=== PATIENT | female | born 1985 | race Caucasian/White ===

== ENCOUNTER 2017-10-15 07:00 | Inpatient (IN) | payer OTHER ==
[~2017-10-15] VITALS: Ht 162.6 cm; Wt 120.2 kg
[~2017-10-15 07:00] MED LIST: AMOXICILLIN500 M3 PO; IBUPROFEN800 M1 PO; KEPPRA 500MG T500 MG
[2017-10-15 10:39] LABS: ABSOLUTE BASOPHIL COUNT 0 /CUMM (0.0-0.2); ABSOLUTE EOSINOPHIL COUNT 0 /CUMM (0.0-0.7); ABSOLUTE LYMPH COUNT 1.3 /CUMM (1.2-3.4); ABSOLUTE MONOCYTE COUNT 0.7 /CUMM (0.10-0.60); BASOPHIL % 0.3 % (0.0-2.0); EOSINOPHIL % 0.5 % (0-5); GRANULOCYTE % 79.5 % (42.2-75.2); HEMATOCRIT 36.8 % (37-47); MEAN CORPUSCULAR HGB 26.6 PG (27.0-31.0); MEAN CORPUSCULAR HGB CONC 32.8 G/DL (33.0-37.0); PLATELET COUNT 208 /CUMM (130-400); RBC DISTRIBUTION WIDTH 15.7 % (11.5-14.5); RED BLOOD CELL CT 4.54 /CUMM (4.20-5.40); WHITE BLOOD CELL COUNT 10.1 /CUMM (4.8-10.8)
[2017-10-15 17:09] LABS: ABSOLUTE BASOPHIL COUNT 0 /CUMM (0.0-0.2); ABSOLUTE EOSINOPHIL COUNT 0 /CUMM (0.0-0.7); ABSOLUTE GRANULOCYTE CT 11.7 /CUMM (1.4-6.5); ABSOLUTE LYMPH COUNT 1.2 /CUMM (1.2-3.4); ABSOLUTE MONOCYTE COUNT 1.1 /CUMM (0.10-0.60); BASOPHIL % 0.1 % (0.0-2.0); EOSINOPHIL % 0.1 % (0-5); GRANULOCYTE % 83.4 % (42.2-75.2); HEMATOCRIT 34.4 % (37-47); MEAN CORPUSCULAR HGB 26.6 PG (27.0-31.0); MEAN CORPUSCULAR HGB CONC 32.5 G/DL (33.0-37.0); PLATELET COUNT 193 /CUMM (130-400); RBC DISTRIBUTION WIDTH 15.7 % (11.5-14.5); RED BLOOD CELL CT 4.19 /CUMM (4.20-5.40)
[2017-10-16 06:19] LABS: ABSOLUTE BASOPHIL COUNT 0 /CUMM (0.0-0.2); ABSOLUTE EOSINOPHIL COUNT 0.1 /CUMM (0.0-0.7); BASOPHIL % 0.2 % (0.0-2.0); RED BLOOD CELL CT 3.59 /CUMM (4.20-5.40)
[2017-10-16 06:27] LABS: ABSOLUTE GRANULOCYTE CT 7.6 /CUMM (1.4-6.5); ABSOLUTE LYMPH COUNT 1.4 /CUMM (1.2-3.4); ABSOLUTE MONOCYTE COUNT 0.6 /CUMM (0.10-0.60); EOSINOPHIL % 1.3 % (0-5); GRANULOCYTE % 77.7 % (42.2-75.2); MEAN CORPUSCULAR HGB 26.6 PG (27.0-31.0); MEAN CORPUSCULAR HGB CONC 32.4 G/DL (33.0-37.0); MEAN PLATELET VOLUME 8.5 FL (7.4-10.4); PLATELET COUNT 161 /CUMM (130-400); RBC DISTRIBUTION WIDTH 15.5 % (11.5-14.5); WHITE BLOOD CELL COUNT 9.8 /CUMM (4.8-10.8)
[2017-10-16 06:30] LABS: HEMATOCRIT 29.4 % (37-47)
--- NOTE | 2017-10-17 10:32 | History & Physical Pre-Op ---
General Information and HPI MD Statement: I have seen and personally examined ALISIA RIVERA and documented this H&P. The patient is a 31 year old F who presented with a patient stated chief complaint of []. History of Present Illness: Patient is a 31-year-old 3 para 1 LMP 01/03/2017 EDC 10/21/2017 at 39 weeks with breech presentation presents for primary section. She underwent unsuccessful trial of external cephalic version last week. care is complete and unremarkable. Allergies/Medications Allergies: Coded Allergies: NO KNOWN ALLERGIES (NONE 10/15/17) Home Med list Ibuprofen 800 MG TABLET 800 MG PO Q6P PRN UTERINE CRAMPING Levetiracetam (Keppra 500MG Tab) 500 MG TABLET SEIZURES (Reported) Past History Medical History Neurological: seizure EENT: NONE Cardiovascular: NONE Respiratory: NONE FRUIT RANCHER/Reproductive: miscarriage Surgical History Pertinent Surgical History: non-contributory Past Family/Social History Psychosocial History Smoking Status: Never Smoked Review of Systems Review of Systems Constitutional: Reports: no symptoms. EENTM: Reports: no symptoms. Cardiovascular: Reports: no symptoms. Respiratory: Reports: no symptoms. GI: Reports: no symptoms. Genitourinary: Reports: no symptoms. Musculoskeletal: Reports: no symptoms. Skin: Reports: no symptoms. Neurological/Psychological: Reports: no symptoms. Hematologic/Endocrine: Reports: no symptoms. Immunologic/Allergic: Reports: no symptoms. All Other Systems: Reviewed and Negative Exam & Diagnostic Data Last 24 Hrs of Vital Signs/I&O Vital signs stable Physical Exam: HEENT: Normocephalic atraumatic Chest: Clear to auscultation Cardiovascular: Normal S1-S2 Abdomen: Gravid breech presentation estimated weight 8 pounds Pelvic: Deferred to the OR Extremities: No clubbing cyanosis or edema Neurologic: Nonfocal Assessment/Plan Assessment/Plan: 39 week breech presentation Plan: Primary section As Ranked By This Provider Problem List: 1. Breech presentation of fetus
--- NOTE | 2017-10-17 10:36 | Operative Report ---
Operative/Inv Procedure Report Surgery Date: 10/15/17 Name of Procedure: Primary section Pre-Operative Diagnosis: Breech presentation Post-Operative Diagnosis: Same Estimated Blood Loss: 800 Surgeon/Corporation Lawyer: Zoe Dugan MD,Seth Mcgee M.D. Anesthesia: spinal Operative/Procedure Note Note: The patient was brought to the operating room placed on the OR table in the sitting position where she underwent spinal anesthetic without complication. She was repositioned into dorsal supine with a block under her right. Venodyne boots were placed and activated and a Jiménez catheter was inserted into the bladder. The patient's abdomen was prepped and draped in the usual sterile fashion and tested. A Pfannenstiel skin incision was made with the scalpel and taken down to the layer of the fascia. The fascia was nicked in the midline and extended bilaterally. The underlying rectus muscles were off the fascia and the peritoneal cavity was entered bluntly. A [place] bladder blade was inserted to protect the bladder from the operative field. A low transverse uterine incision was made with the scalpel and the uterine cavity was entered. A liveborn female was delivered atraumatically through the appropriate maneuvers a perez breech presentation. Tubes handed off to the waiting blasting contract man for weight and scores. The placenta was then manually removed intact with three-vessel cord. The uterus was then exteriorized and wiped clean with a wet lap sponge. The uterine incision was closed in 2 layers of 0 Polysorb, the second imbricating the first. There was some bleeding noted from the left-sided angle and 3 [id number] sutures were placed here for hemostasis. The abdomen and pelvis were copiously irrigated and the uterus was placed back into the abdominal cavity. The suture line was once again visualized and noted to be hemostatic. Anabell coagulant powder was placed on the suture site. The rectus muscles were reapproximated with a mattress suture of 0 Polysorb in the fascia was closed with 0 Maxon in a running nonlocking fashion. Subcutaneous tissues were irrigated and coagulated were needed and the skin was closed using shabbir. A dry sterile dressing was applied to the wound. The patient was then transferred to recovery in good condition., All needle, sponge counts were correct at the end of the procedure 4.
--- NOTE | 2017-10-17 10:37 | PN- Post Delivery/GYN ---
Subjective Subjective: No complaints Review of Systems: Negative Objective Last 24 Hrs of Vital Signs/I&O Past signs stable Physical Exam: Incision clean dry and intact Fundus firm Extremities not nontender Assessment/Plan Assessment/Plan Postoperative day #1 status post Patient is stable DC Jiménez Advance diet Increase activity
--- NOTE | 2017-10-17 10:38 | PN- Post Delivery/GYN ---
Subjective Subjective: No complaint Review of Systems: Signs stable Objective Last 24 Hrs of Vital Signs/I&O Stable Physical Exam: Incision clean dry and intact, fundus firm Assessment/Plan Assessment/Plan Postoperative day #2 status post Patient doing well Discharge home tomorrow
[2017-10-17] MEDS ORDERED: DIFLUCAN100 M1 PO (10:41)
[2017-10-17] MEDS ORDERED: PERCOCET 5-3251 EACH PO (10:41)
[2017-10-17] MEDS ORDERED: IBUPROFEN800 M1 PO (10:41)
== END 2017-10-18 11:00 | DRG 540 ==
LOC: SDA 07:00 → GNO 09:35
PROVIDERS: Obstetrics & Gynecology
PROC: 10D00Z1 Extraction of Products of Conception, Low, Open Approach (ICD-10-PCS; principal; 2017-10-15)
DX: O32.1XX0 Maternal care for breech presentation, not applicable or unspecified (principal); R56.9 Unspecified convulsions; O99.89 Other specified diseases and conditions complicating pregnancy, childbirth and the puerperium; Z3A.39 39 weeks gestation of pregnancy; Z37.0 Single live birth
CPT/HCPCS: GNOS; 81001; 87086; J1450; J1650; J1885; J1953; J2550; J2790; J7120